=== PATIENT | male | born 1985 | race Caucasian/White ===

== ENCOUNTER 2025-02-05 10:47 | Emergency (ER) | payer OTHER, SELFPAY ==
--- OUTSIDE RECORDS SUMMARY | 2024-03-10 04:56 | XMS_ITS | Continuity of Care Document ---
Author Organization [facility] ters Address [address] [place] [id number] Phone Care Team Providers Care Short Goods Drier Name Role Phone Becki Brothers Unavailable Unavailabl e Allergies, Adverse Reactions, Alerts Substance Reaction Status Criticality No Known Allergies Active No Inform ation Medications Medication Instructions Dosage Effective Dates (start - stop) Status Comments glucosamine HCl 1,500 mg tablet take 1 tablet by mouth daily - Active medical marijuana INHALATION FLAKES use as directed - Active Multi-Day Plus Minerals 18 mg iron-400 mcg-25 mcg tablet - Active Super B Maxi Complex 0.4 mg tablet - Active Vitamin D3 125 mcg (5,000 unit) tablet take 1 capsule by oral route every day 1 capsule - Active Zinc 50mg ORAL TABLET - Active magnesium 250 mg tablet - Active Vitamin C 1,000 mg tablet - Active [place]-3 Fish Oil 910 mg-1,400 mg capsule - Active Advance Directives Directive Yes / No Effective Date File Name No Information Encounters Encounter Description Practice Location Reason(s) For Visit Diagnoses Date Provider [facility], [address] [place] [address], [address], tel:[phone] [facility] No Information Silvano Connell. [address] [place] [address], [place], [address], [place]. tel:[phone] [facility], [address] [place] [address], [address], tel:[phone] [facility] lab draw (chief complaint) No Information Silvano Connell. [address] [address], [place], [address], [place]. tel:[phone] [facility], [address] [place] [address], [address], [place] tel:[phone] [facility] Mood FU (chief complaint) Body mass index [BMI] 24.0-24.9, adultPost-traumatic stress disorder, chronicAnxietyEncounter for screening for cholesterol level Silvano Connell. [address] [place] [address], [address], [place]. tel:[phone] [facility], [address] [place] [address], [address], [place] [phone] [facility] Establish care (chief complaint) Body mass index [BMI] 25.0-25.9, adultPost-traumatic stress disorder, chronicAnxietyEncounter for adult annual physical exam w/ abnormal findingEncounter for screening for cholesterol level Silvano Connell. [address] [place] [address], [place], [address], [place]. [phone] [facility], [address] [place] [address], [address], [place] [phone] [place] [address] No Information Silvano AppleAnn. [address] [place] [address], [address], [place]. [phone] Family History Family Member Type Diagnosis Age At Onset No Information Payers Payer name Insurance type Covered alliance party ID Authoriza tirichard(s) Med[employer] CI [id number] Social History Type Description Quantity Date Captured Comments Alcohol Use Details Unknown Caffeine Use Details Unknown Tobacco Use Status No Information Smoking Status No Information Sex Male Sexual Orientation Straight or heterosexual Dec Gender Identity Male Chief Complaint And Reason For Visit No Information Plan Of Treatment Date Type Action Status Goal HIV screen. Due on due Goal Hepatitis C screening. Due o n due Goal BMI plan if BMI out of range . Due on due Goal Lipid panel. Due on due Goal FIT-DNA. Due on due Goal Sigmoidoscopy. Due on due Goal CT-Colonography. Due on due Goal Depression screening. Due on due Goal Colonoscopy. Due on due Goal Influenza vaccine. Due on due Goal Td vaccine. Due on due Goal Annual wellness exam. Due on due Goal FIT. Due on due Goal Myriad cancer screening. Due on due Goal Tdap. Due on due Goal Unhealthy drug use screening . Due on due Goal FOBT. Due on due Goal HIV screen. Due on due Goal Depression screening. Due on due Goal Sigmoidoscopy. Due on due Goal Lipid panel. Due on due Goal Myriad cancer screening. Due on due Goal Influenza vaccine. Due on due Goal Unhealthy drug use screening . Due on due Goal Hepatitis C screening. Due o n due Goal FIT-DNA. Due on due Goal FIT. Due on due Goal BMI plan if BMI out of range . Due on due Goal FOBT. Due on due Goal Td vaccine. Due on due Goal CT-Colonography. Due on due Goal Tdap. Due on due Goal Annual wellness exam. Due on due Goal Colonoscopy. Due on due Goal Colonoscopy. Due on due Goal FIT-DNA. Due on due Goal Hepatitis C screening. Due o n due Goal BMI plan if BMI out of range . Due on due Goal FIT. Due on due Goal HIV screen. Due on due Goal Unhealthy drug use screening . Due on due Goal Sigmoidoscopy. Due on due Goal FOBT. Due on due Goal CT-Colonography. Due on due Goal Myriad cancer screening. Due on due Goal Influenza vaccine. Due on due Goal Lipid panel. Due on due Goal Td vaccine. Due on due Goal Annual wellness exam. Due on due Goal Depression screening. Due on due Goal Tdap. Due on due Goal Lifestyle education regardin g diet completed Goal Tdap. Due on due Goal FOBT. Due on due Goal CT-Colonography. Due on due Goal Colonoscopy. Due on 023 due Goal HIV screen. Due on due Goal FIT-DNA. Due on due Goal Td vaccine. Due on due Goal BMI plan if BMI out of range . Due on due Goal Sigmoidoscopy. Due on due Goal Unhealthy drug use screening . Due on due Goal Depression screening. Due on due Goal Hepatitis C screening. Due o n due Goal Annual wellness exam. Due on due Goal Influenza vaccine. Due on due Goal Myriad cancer screening. Due on due Goal FIT. Due on due Goal Lifestyle education regardin g diet completed Goal Influenza vaccine. Due on due Goal Myriad cancer screening. Due on due Goal FIT. Due on due Goal Annual wellness exam. Due on due Goal Hepatitis C screening. Due o n due Goal Td vaccine. Due on due Goal Depression screening. Due on due Goal Unhealthy drug use screening . Due on due Goal Sigmoidoscopy. Due on due Goal BMI plan if BMI out of range . Due on due Goal FIT-DNA. Due on due Goal HIV screen. Due on 23 due Goal Colonoscopy. Due on 023 due Goal Tdap. Due on due Goal FOBT. Due on due Goal CT-Colonography. Due on due History Of Present Illness Encounter Date Complaint History Of Prese nt Illness lab draw Mood FU Patient here for FU of disability paperwork and mood management. Last seen 12/12/2022 when he established care at his clinic. Since that time he has continued to be employed by [employer] which is going well. He has no issues with his or children in regard to his diagnoses. Is able to interact appropriately and professionally at his place of employment and in the general public. He endorses feelings of anxiety and PTSD being his main 'problems'. Does feel stable at this time and denies any thoughts of suicidal ideation or self harm, or harm to others. Continues to see his counselor, Cody Nathan, which is helpful for him. Is no longer taking his lexapro as he did not like how it made him feel. He discontinued this abruptly but denies any issues with rebound anxiety or withdrawal symptoms. He has no new concerns today, no changes to medical history. Franco lives in [place] with his and 2 children. 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 Has caused significant mental health issues and had caused relationship challenges with friends, family and his . Was seen by several psychologists to confirm diagnosis and has been seeing his therapist via Zoom meetings bi-weekly. Does use medical marijuana for anxiety management through [facility] in [place] via vape and teixeira, uses this daily which is helpful for mood. Denies knowing if he's been checked for HCV but has been checked for HIV and it was negative. Does cardio and weight lifting about 5-6 days per week. Establish care Patient here to establish care as prior PCP is no longer practicing. 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 Had caused significant mental health issues and relationship challenges with friends, family and his . Was seen by several psychologists to confirm diagnosis and has been seeing his therapist via Zoom meetings bi-weekly. Has upcoming appt this month. Has been working for a [employer] which is an improvement for his mood. Does take Lexapro currently for PTSD and some anxiety. Does use medical marijuana for anxiety management through [employer] [facility] [employer] [place] in [place] via vape and teixeira, uses this daily which is helpful for mood. Denies any suicidal ideations or mood changes today.Does not recall any recent lab work. Denies history of HTN, DM II, thyroid issues, stroke, CAD, liver or kidney issues, asthma, HLD. Denies knowing if he's been checked for HCV but has been checked for HIV and it was negative. He lives in [place] with his and 2 children-1 is a . Working full-time at a [employer] company which is going well. 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 Does cardio and weight lifting about 5-6 days per week. Drinks alcohol about 2 beers per night. Denies illicit drug use. Instructions Date Instruction Additional Infor frank Giving encouragement to exercise Related to Body mass index [BMI] 24.0-24.9, adult Lifestyle education regarding di et Related to Body mass index [BMI] 24.0-24.9, adult Management of mental health steph tment Related to Post-traumatic stress disorder, chronic Lifestyle education regarding di et Related to Body mass index [BMI] 25.0-25.9, adult Giving encouragement to exercise Related to Body mass index [BMI] 25.0-25.9, adult Assessments Type Assessment Date No Information
--- OUTSIDE RECORDS SUMMARY | 2025-02-05 10:49 | XMS_ITS | Clinical Summary ---
Author Organization [facility] Address [address] [place] [address] Care Team Providers Care Fill Manager Name Role Phone Pcp, No Primary Care Provider Unavailabl e Allergies No known active allergies Medications predniSONE (DELTASONE) 20 mg tablet 3 tabs oral daily for 2 days, 2 daily for 2 days, 1 daily for 2 days. 12 tablet 0 11/04/2010 Active Immunizations Immunization Administration Dates Next Due Hepatitis B (Peds) 04/17/2000,10/03/1999, 000 Inactivated Polio Vaccine 09/08/1986,05/27/1985, 03/25/1985,01/21/1985 Influenza, IIV3 (Age >=3 years) 02/09/2010 MMR 07/12/1996,02/24/1986 Meningococcal Vaccine 09/08/2002 Tdap 07/20/2008,07/12/1996 Tuberculin (PPD) 09/25/2010,12/21/2009 Social History Tobacco Use Types Packs/Day Years Used Date Smoking Tobacco: Never Smokeless Tobacco: Never Alcohol Use Standard Drinks/Week Comments Yes 0 (1 standard drink = 0.6 oz pur e alcohol) Sex and Gender Information Value Date Recorded Sex Assigned at Not on file 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 Gender Identity Not on file Sexual Orientation Not on file Obstetrics History Last Filed Vital Signs Vital Sign Reading Time Taken Comments Blood Pressure 135/82 11/04/2010 12:53 PM CDT Pulse 73 11/04/2010 12:53 PM CDT Temperature 37.2 C (99 F) 11/04/2010 12:53 PM CDT Respiratory Rate - - Oxygen Saturation 98% 11/04/2010 12: 53 PM CDT Inhaled Oxygen Concentration - - Weight 89.2 kg (196 lb 11.2 oz) 011 12:53 PM CDT Height 186 cm (6' 1.23) 09/26/2010 2:50 PM CDT Body Mass Index 25.79 09/26/2010 2:50 PM CDT Plan of Treatment Health Maintenance Due Date Last Done Comments Depression screening for age 12+ 1996 HIV for age 15-65 11/09/1999 BMI (ht and wt on same day) for age 18+ 2002 Hepatitis C screening for ag e 18-79 2002 HPV series for age 9-45 (1 - 3-dose SCDM series) 11/09/2011 Tetanus booster 07/20/2018 07/20/2008, 07/12/1996 Lipids for age 35-44 11/09/2019 COVID-19 vaccine series ( season) 2025 Influenza Vaccine (#1) 2025 02/09/2010 RSV vaccine for adults or (1 - 1-dose 75+ series) 11/09/2059 Hepatitis B series for 19+ Completed 04/17, 10/03/1999, 09/02/1999 Pneumococcal series for age 6-49 Aged Out No longer eligible b ased on patient's age to complete this topic Insurance [facility] Care Teams Fill Manager Relationship Specialty Start Date End Date Pcp, No . PCP - General 10/04/20
[2025-02-05 10:56] VITALS: BP 127/77; PULSE 75; RESP 18; TEMP 36.6; O2SAT 99; BMI 23.1
--- NOTE | 2025-02-05 11:16 | CRLHL7_ITS ---
For Patients: As a result of the Century Cures Act, medical imaging exams and procedure reports are released immediately into your electronic medical record. You may view this report before your referring provider. If you have questions, please contact your health care provider. Indication: Right knee pain after fall. Technique: Three views of the right knee. Comparison: None. Findings: Normal alignment. Heterotopic ossification about the anterior tibial tubercle. No fracture. Joint spaces are normal. Small effusion. Impression: No acute osseous abnormality. Dictated by John Sumner MD @ 02/05/2025 12:14:25 PM (Electronically Signed)
--- NOTE | 2025-02-05 11:16 | ED_ITS ---
HPI - Extremity Injury (Lower) General Chief Complaint: Extremity Pain/Injury, Lower Stated Complaint: Fall approx 3 feet, R leg injury Time Seen by Provider: 02/05/25 10:50 History of Present Illness HPI Narrative: This 39-year-old male comes in with an injury to his right knee. He was coming down off of a ladder and misstepped and had pain in the medial aspect of his right knee. He states that his knee was misshapen and angulated in a valgus deformity. He then stated that it seemed to straighten out. He attempted to get up and ambulate and again his knee was very unstable. He does not report any other injury. Currently he does not have any pain. There is no sign of swelling or external injury on his right knee. Related Data Home Medications ?Medication ?Instructions ?Recorded ?Confirmed No Known Home Medications 02/05/2501/13 Allergies Allergy/AdvReac Type Severity Reaction Status Date / Time No Known Drug Allergies Allergy Verified 02/05/25 10:55 Review of Systems Status of ROS: Reports: 10 or more systems reviewed and unremarkable except as noted in History and below Narrative: Constitutional: No fevers, no weight gain or loss. Eyes: No discharge. No vision changes. HENT: No congestion, no sore throat, no ear pain. Cardiovascular: No chest pain, no palpitations. Respiratory: No shortness of breath, no wheezes, no cough. Gastrointestinal: No abdominal pain, no vomiting, no diarrhea. Genitourinary: No dysuria, no hematuria. Musculoskeletal: Normal range of motion. Right knee injury as described above. Skin: No rashes, no pruritis. Neurological: No dizziness, weakness, sensory change, speech change. Endo/Heme/Allergies: No bruising or bleeding. No polydipsia. Pysch: no suicidality, no anxiety, no insomnia. All other systems reviewed and are negative. Exam Narrative: Exam Narrative: Constitutional: Well-developed, well-nourished, no acute distress. HEENT: Normocephalic, atraumatic. Neck: Normal range of motion. Nontender. Supple. Heart: Intact distal pulses. Lungs: No chest discomfort. No wheezes, rhonchi, or rales. Abdomen: Nontender. Back: Normal range of motion. Extremities: Normal range of motion. Right knee has no sign of deformity at rest. On ligament exam he has significant mobility under valgus stress at 30 degree angulation of the knee. I am able to press my fingers into the of opening of the knee joint on the medial aspect. Jonathan's is negative. No pain when mobilizing his patella when in full relaxed extension. Skin: Intact. No rash. Warm. No erythema or pallor. Neurologic: No altered sensation. No weakness. Alert and oriented. Psychiatric: No suicidality. No anxiety or depression. No insomnia. Nursing notes and vitals signs are reviewed. Const: Vital Signs, click to edit/add: Vital Signs - 24 hr 02/05/25 10:56 Temperature 97.9 F Pulse Rate [Pulse Oximeter] 75 Respiratory Rate 18 Blood Pressure [Ri ght Upper Arm] 127/77 Pulse Oximetry 99 Oxygen Delivery Me thod Room Air Course Vital Signs Vital signs: Initial Vital Signs Temperature 97.9 F 02/05/25 10:56 Temperature Source Temporal Artery Scan 02/05/25 10:56 Pulse Rate 75 02/05/25 10:56 Pulse Rhythm Regular 02/05/25 10:56 Respiratory Rate 18 02/05/25 10:56 Blood Pressure 127/77 02/05/25 10:56 Blood Pressure Mean 93 02/05/25 10:56 Blood Pressure Position Sitting 02/05/25 10:56 Pulse Oximetry 99 02/05/25 10:56 Oxygen Delivery Method Room Air 02/05/25 10:56 Vital Signs Temperature 97.9 F 02/05/25 10:56 Pulse Rate 75 02/05/25 10:56 Respiratory Rate 18 02/05/25 10:56 Blood Pressure 127/77 02/05/25 10:56 Pulse Oximetry 99 02/05/25 10:56 Oxygen Delivery Method Room Air 02/05/25 10:56 Temperature 97.9 F 02/05/25 10:56 Pulse Rate 75 02/05/25 10:56 Respiratory Rate 18 02/05/25 10:56 Blood Pressure 127/77 02/05/25 10:56 Pulse Oximetry 99 02/05/25 10:56 Oxygen Delivery Method Room Air 02/05/25 10:56 MDM - Extremity Injury (Lower) MDM Narrative Medical decision making narrative: This patient comes in with an injury to his right knee as described above. On exam I was able to significantly move his knee under valgus stress and opened the medial aspect of his joint. This appears to be a grade 3 MCL tear. Additionally at full extension I was able to move his joint more than normal. X-ray imaging shows no acute findings. I did speak with Dr. Mims regarding the instability even at full extension. He stated that this could be an indicator of further ligament disruption but the patient does not have an abnormal Jonathan's test and there is no swelling of his knee joint. For now it is appropriate to be in a knee immobilizer and encourage activity without stressing that MCL ligament. Patient was provided with crutches and a knee immobilizer. He lives in [facility] and will follow-up with orthopedic clinic there. Imaging Data XR R Knee: Radiologist's impression: No acute osseous abnormality. Discharge Plan Discharge Clinical Impression: Tear of MCL (medial collateral ligament) of knee Patient Disposition: Home, Self-Care Condition: Stable Additional Instructions: Wear knee immobilizer and use crutches as needed. Activity is encouraged as long as the knee remains stable. Follow-up with orthopedic clinic for ongoing management. Prescriptions: No Action No Known Home Medications Follow Up/Referrals: Provider,Not a Local [Primary Care Provider, Family Practice] Stand Alone Forms: [employer] Info Instructions
== END 2025-02-05 13:14 | disposition home or self-care (01) ==
PROVIDERS: Emergency Provider Emergency Medicine Emergency Medical Services
DX: S83.411A Sprain of medial collateral ligament of right knee, initial encounter (principal); X50.1XXA Overexertion from prolonged static or awkward postures, initial encounter
CPT/HCPCS: 73562; 99283; 99284